=== PATIENT | male | born 1985 | race Caucasian/White ===

== ENCOUNTER 2023-10-24 06:57 | Emergency (ER) | payer MEDICAID, OTHER ==
[~2023-10-24] VITALS: Ht 175.3 cm; Wt 86.3 kg
[2023-10-24 07:10] VITALS: BP 144/89; PULSE 75; RESP 16; O2SAT 98
[2023-10-24 08:24] LABS: Basophils # (auto) 0.1 10 ^3/uL (0-0.2); Eosinophils # (auto) 0.1 10 ^3/uL (0-0.8); Eosinophils % (auto) 1.5 % (0.0-7.0); Hematocrit 40.9 % (41.0-53.0); Hemoglobin 13.8 g/dL (13.5-17.5); Lymphocytes # (auto) 1.5 10 ^3/uL (0.4-5.4); Lymphocytes % (auto) 24.5 % (10.0-50.0); Mean Corpuscular Hemoglobin 31.4 pg (28.0-32.0); Mean Corpuscular Hgb Conc. 33.7 g/dL (32.0-36.0); Mean Corpuscular Volume 93.1 fL (80.0-100.0); Monocytes # (auto) 0.5 10 ^3/uL (0-1.3); Monocytes % (auto) 8.5 % (0.0-12.0); Neutrophils # (auto) 3.9 10 ^3/uL (1.6-8.6); Neutrophils % (auto) 64.5 % (37.0-80.0); Red Blood Cells 4.39 10^6/uL (4.5-5.90); Red Cell Distribution Width 12.5 % (11.8-14.3)
[2023-10-24 08:42] LABS: Alanine Aminotransferase 13 U/L (7-40); Albumin 4.4 g/dL (3.2-4.8); Alkaline Phosphatase 97 U/L (46-116); Anion Gap 6 (5-15); Aspartate Aminotransferase 49 U/L (13-40); BUN/Creatinine Ratio 14.3 (10.0-20.0); Bilirubin, Direct 0.1 mg/dL (<0.3); Bilirubin, Total 0.4 mg/dL (0.2-1.0); Blood Alcohol 110.3 mg/dL (<10); Blood Urea Nitrogen 11 mg/dL (9-23); Calcium 9.1 mg/dL (8.5-10.1); Carbon Dioxide 26 mmol/L (20-30); Chloride 108 mmol/L (98-107); Glucose 94 mg/dL (74-106); Potassium 3.8 mmol/L (3.5-5.1); Sodium 140 mmol/L (136-145); Total Protein 6.8 g/dL (5.7-8.2)
[2023-10-24 09:31] LABS: Lipase 50 U/L (12-53); Magnesium 2.2 mg/dL (1.6-2.6)
[2023-10-24] MEDS ORDERED: BACDST PO (10:14)
== END 2023-10-24 10:42 | disposition home or self-care (01) ==
LOC: ER 06:57 → EDBD 06:57 → ER 10:42
DX: L02.232 Carbuncle of back [any part, except buttock and flank] (principal); L02.222 Furuncle of back [any part, except buttock and flank]; F10.10 Alcohol abuse, uncomplicated; F17.210 Nicotine dependence, cigarettes, uncomplicated; R07.89 Other chest pain; Z59.00 Homelessness unspecified; Y90.5 Blood alcohol level of 100-119 mg/100 ml
CPT/HCPCS: 36415; 71045; 80048; 80076; 80320; 83690; 83735; 85025

== ENCOUNTER 2023-12-29 01:54 | Inpatient (IN) | payer MEDICAID ==
[~2023-12-29] VITALS: Ht 180.3 cm; Wt 91.6 kg
[~2023-12-29 01:54] MED LIST: BACDST PO
[2023-12-29 03:17] LABS: Chloride 93 mmol/L (98-107); Potassium 3.8 mmol/L (3.5-5.1); Sodium 129 mmol/L (136-145)
[2023-12-29 03:18] LABS: Anion Gap 7 (5-15); Calcium 9.3 mg/dL (8.7-10.4); Carbon Dioxide 29 mmol/L (20-30)
[2023-12-29 03:23] LABS: BUN/Creatinine Ratio 11.5 (10.0-20.0); Blood Urea Nitrogen 13 mg/dL (9-23); Glucose 118 mg/dL (74-106)
[2023-12-29 03:50] LABS: Lactic Acid w/Reflex 2.1 mmol/L (0.4-2.0)
[2023-12-29 03:58] LABS: Basophils # (auto) 0 10 ^3/uL (0-0.2); Basophils % (auto) 0.3 % (0.0-2.0); Eosinophils # (auto) 0 10 ^3/uL (0-0.8); Eosinophils % (auto) 0.3 % (0.0-7.0); Hematocrit 41.4 % (41.0-53.0); Hemoglobin 14.4 g/dL (13.5-17.5); Lymphocytes # (auto) 0.9 10 ^3/uL (0.4-5.4); Lymphocytes % (auto) 10.9 % (10.0-50.0); Mean Corpuscular Hemoglobin 31.2 pg (28.0-32.0); Mean Corpuscular Hgb Conc. 34.9 g/dL (32.0-36.0); Mean Corpuscular Volume 89.6 fL (80.0-100.0); Monocytes # (auto) 1.1 10 ^3/uL (0-1.3); Monocytes % (auto) 13.1 % (0.0-12.0); Neutrophils # (auto) 6.2 10 ^3/uL (1.6-8.6); Neutrophils % (auto) 75.4 % (37.0-80.0); Nucleated Red Blood Cells % 0.1 %; Red Blood Cells 4.62 10^6/uL (4.5-5.90); Red Cell Distribution Width 12.6 % (11.8-14.3); White Blood Cell 8.2 10^3/uL (4.4-10.8)
[2023-12-29] MEDS: SODIUM CHLORIDE 0.9% 1,000 ML IV ONE (04:15)
[2023-12-29] MEDS: TETANUS-DIPTH-ACEL PERTUSSIS 0.5ML SYR Tdap IM ONE (04:15)
[2023-12-29] MEDS: KETOROLAC TROMETH 30 MG/ML 1ML VIAL IV ONE (04:47)
[2023-12-29] MEDS: PIPERACILLIN-TAZO 4.5GM 100 ML IV ONE (04:48)
[2023-12-29] MEDS ORDERED: ACETAMINOPHEN 325 MG TAB PO PRN (06:45)
[2023-12-29] MEDS ORDERED: DOCUSATE SOD 100 MG CAP PO PRN (06:45)
[2023-12-29] MEDS ORDERED: MORPHINE SULFATE INJ 2 MG/ml SYRG IV PRN ×2 (06:45)
[2023-12-29] MEDS ORDERED: ONDANSETRON HCL 4 MG/2 ML VIAL IV PRN (06:45)
[2023-12-29] MEDS ORDERED: NITROGLYCERIN 0.4 MG SL TAB SL PRN (06:45)
[2023-12-29 07:20] LABS: Basophils # (auto) 0 10 ^3/uL (0-0.2); Basophils % (auto) 0.2 % (0.0-2.0); Eosinophils # (auto) 0 10 ^3/uL (0-0.8); Eosinophils % (auto) 0.2 % (0.0-7.0); Hematocrit 36.9 % (41.0-53.0); Hemoglobin 12.8 g/dL (13.5-17.5); Lymphocytes # (auto) 0.6 10 ^3/uL (0.4-5.4); Lymphocytes % (auto) 6.7 % (10.0-50.0); Mean Corpuscular Hemoglobin 31.3 pg (28.0-32.0); Mean Corpuscular Hgb Conc. 34.7 g/dL (32.0-36.0); Monocytes # (auto) 1.1 10 ^3/uL (0-1.3); Neutrophils # (auto) 6.7 10 ^3/uL (1.6-8.6); Neutrophils % (auto) 79.9 % (37.0-80.0); Red Cell Distribution Width 12.8 % (11.8-14.3); White Blood Cell 8.3 10^3/uL (4.4-10.8)
[2023-12-29 07:33] LABS: Alanine Aminotransferase 20 U/L (7-40); Albumin 3.9 g/dL (3.2-4.8); Alkaline Phosphatase 77 U/L (46-116); Anion Gap 7 (5-15); Aspartate Aminotransferase 49 U/L (13-40); BUN/Creatinine Ratio 13.7 (10.0-20.0); Bilirubin, Total 0.9 mg/dL (0.2-1.0); Blood Urea Nitrogen 14 mg/dL (9-23); Calcium 8.7 mg/dL (8.7-10.4); Carbon Dioxide 26 mmol/L (20-30); Chloride 97 mmol/L (98-107); Glucose 135 mg/dL (74-106); Potassium 3.3 mmol/L (3.5-5.1); Sodium 130 mmol/L (136-145); Total Protein 6.5 g/dL (5.7-8.2)
[2023-12-29 08:18] VITALS: PULSE 56; RESP 17; O2SAT 97
[2023-12-29] MEDS: SODIUM CHLORIDE 0.9% 1,000 ML IV SCH (08:29)
[2023-12-29 09:03] VITALS: BP 101/51; PULSE 62; RESP 15; TEMP 98.4; O2SAT 99
[2023-12-29 13:00] VITALS: BP 92/43; PULSE 101; RESP 18; TEMP 97.5; O2SAT 93
[2023-12-29] MEDS: PIPERACILLIN-TAZOB 3.375GM 100 ML IV SCH (14:59)
[2023-12-29 17:00] VITALS: BP 99/54; PULSE 76; RESP 16; TEMP 98.6; O2SAT 99
[2023-12-29 20:00] VITALS: PULSE 98; RESP 18; O2SAT 98
[2023-12-29 21:00] VITALS: BP 98/64; PULSE 98; RESP 18; TEMP 98.6; O2SAT 98
[2023-12-30] VITALS (7 sets, daily range): BP systolic 92–118; BP diastolic 59–73; PULSE 71–95; RESP 17–19; TEMP 97.7–98.9; O2SAT 95–100
[2023-12-30] MEDS: HYDROcodone-ACET 5/325MG TAB PO PRN (05:53)
[2023-12-30 06:57] LABS: Basophils # (auto) 0 10 ^3/uL (0-0.2); Basophils % (auto) 0.5 % (0.0-2.0); Eosinophils # (auto) 0.1 10 ^3/uL (0-0.8); Hematocrit 34.3 % (41.0-53.0); Hemoglobin 11.7 g/dL (13.5-17.5); Lymphocytes # (auto) 1.2 10 ^3/uL (0.4-5.4); Lymphocytes % (auto) 19.9 % (10.0-50.0); Mean Corpuscular Hgb Conc. 34.2 g/dL (32.0-36.0); Mean Corpuscular Volume 90.7 fL (80.0-100.0); Monocytes # (auto) 0.9 10 ^3/uL (0-1.3); Monocytes % (auto) 14.9 % (0.0-12.0); Neutrophils # (auto) 3.8 10 ^3/uL (1.6-8.6); Neutrophils % (auto) 63.7 % (37.0-80.0); Nucleated Red Blood Cells % 0.1 %; Red Blood Cells 3.78 10^6/uL (4.5-5.90); Red Cell Distribution Width 12.9 % (11.8-14.3)
[2023-12-30 07:04] LABS: Alanine Aminotransferase 21 U/L (7-40); Alkaline Phosphatase 71 U/L (46-116); Anion Gap 5 (5-15); Aspartate Aminotransferase 34 U/L (13-40); BUN/Creatinine Ratio 12.6 (10.0-20.0); Blood Urea Nitrogen 11 mg/dL (9-23); Calcium 8.4 mg/dL (8.7-10.4); Carbon Dioxide 27 mmol/L (20-30); Chloride 101 mmol/L (98-107); Glucose 116 mg/dL (74-106); Potassium 3.9 mmol/L (3.5-5.1); Sodium 133 mmol/L (136-145)
[2023-12-30 07:05] LABS: Albumin 3.4 g/dL (3.2-4.8); Bilirubin, Total 0.6 mg/dL (0.2-1.0); Total Protein 5.7 g/dL (5.7-8.2)
[2023-12-30 08:43] LABS: Hepatitis B Surface Antigen Negative (Negative)
[2023-12-30 09:05] LABS: Hepatitis C Antibody Negative (Negative)
[2023-12-30] MEDS ORDERED: VANCOMYCIN PER PHARMACY 0 MG IV SCH (12:45)
[2023-12-30] MEDS: VANCOMYCIN 1GM/200ML 200 ML IV ONE (13:59)
[2023-12-30 20:58] LABS: Amphetamine Screen, Urine Neg (NEGATIVE); Barbiturate Scree,Urine Neg (NEGATIVE); Benzodiazephine Screen, Urine Neg (NEGATIVE); Cocaine Screen, Urine Neg (NEGATIVE); Opiate Scree,Urine Neg (NEGATIVE); Phencyclidine Screen, Urine Neg (NEGATIVE)
[2023-12-30 20:59] LABS: Cannabinoid Screen, Urine Neg (NEGATIVE)
[2023-12-30] MEDS: VANCOMYCIN 1GM/200ML 200 ML IV SCH (21:54)
[2023-12-31] VITALS (7 sets, daily range): BP systolic 97–112; BP diastolic 58–67; PULSE 70–81; RESP 16–20; TEMP 97.5–98.2; O2SAT 94–100
[2023-12-31] MEDS: PIPERACILLIN-TAZOB 3.375GM 100 ML IV SCH (00:02)
[2023-12-31 06:34] LABS: Alanine Aminotransferase 27 U/L (7-40); Albumin 3.7 g/dL (3.2-4.8); Alkaline Phosphatase 79 U/L (46-116); Anion Gap 7 (5-15); Aspartate Aminotransferase 38 U/L (13-40); BUN/Creatinine Ratio 12.2 (10.0-20.0); Blood Urea Nitrogen 10 mg/dL (9-23); Calcium 8.8 mg/dL (8.7-10.4); Carbon Dioxide 24 mmol/L (20-30); Chloride 104 mmol/L (98-107); Glucose 112 mg/dL (74-106); Potassium 4.1 mmol/L (3.5-5.1); Sodium 135 mmol/L (136-145)
[2023-12-31 06:35] LABS: Bilirubin, Total 0.4 mg/dL (0.2-1.0)
[2023-12-31 06:43] LABS: Basophils # (auto) 0 10 ^3/uL (0-0.2); Basophils % (auto) 0.6 % (0.0-2.0); Eosinophils # (auto) 0.2 10 ^3/uL (0-0.8); Eosinophils % (auto) 2.3 % (0.0-7.0); Hemoglobin 11.8 g/dL (13.5-17.5); Lymphocytes # (auto) 1.5 10 ^3/uL (0.4-5.4); Lymphocytes % (auto) 21.5 % (10.0-50.0); Mean Corpuscular Hemoglobin 30.7 pg (28.0-32.0); Mean Corpuscular Hgb Conc. 33.8 g/dL (32.0-36.0); Mean Corpuscular Volume 90.9 fL (80.0-100.0); Monocytes # (auto) 1.1 10 ^3/uL (0-1.3); Monocytes % (auto) 16.3 % (0.0-12.0); Neutrophils % (auto) 59.3 % (37.0-80.0); Nucleated Red Blood Cells % 0.1 %; Red Blood Cells 3.85 10^6/uL (4.5-5.90); Red Cell Distribution Width 13.1 % (11.8-14.3); White Blood Cell 6.8 10^3/uL (4.4-10.8)
[2023-12-31] MEDS: VANCOMYCIN 1GM/200ML 200 ML IV SCH (20:22)
[2024-01-01 01:00] VITALS: BP 101/61; PULSE 61; RESP 22; TEMP 98.9; O2SAT 98
[2024-01-01 05:00] VITALS: BP 110/67; PULSE 65; RESP 22; TEMP 97.9; O2SAT 99
[2024-01-01 07:30] VITALS: PULSE 70; RESP 18; O2SAT 98
[2024-01-01 09:03] VITALS: BP 101/59; PULSE 68; RESP 17; TEMP 97.7; O2SAT 97
[2024-01-01] MEDS ORDERED: CLIN300C2 PO (10:34)
[2024-01-01 13:45] VITALS: BP 112/66; PULSE 70; RESP 18; TEMP 36.5; O2SAT 95
[2024-01-02] MEDS ORDERED: IBUP-1456 PO (14:58)
== END 2024-01-01 15:00 | disposition home or self-care (01) | DRG 351 ==
LOC: ER 01:54 → OVERFLOW 06:50 → EAST 08:37
PROVIDERS: ADMIT Internal Medicine; ATTEND Internal Medicine Geriatric Medicine
DX: S81.802A Unspecified open wound, left lower leg, initial encounter (principal); E87.1 Hypo-osmolality and hyponatremia; L03.116 Cellulitis of left lower limb; S81.812A Laceration without foreign body, left lower leg, initial encounter; F15.90 Other stimulant use, unspecified, uncomplicated; E87.6 Hypokalemia; F17.210 Nicotine dependence, cigarettes, uncomplicated; X58.XXXA Exposure to other specified factors, initial encounter; Z59.00 Homelessness unspecified; Y93.89 Activity, other specified; Y92.89 Other specified places as the place of occurrence of the external cause; Y99.8 Other external cause status
CPT/HCPCS: 36415; 73590; 73700; 80048; 80053; 80202; 80307; 83605; 85025; 86803; 87040; 87077; 87186; 87205; 87340; 90715; 93005; 96365; 96372; 96375; G0378; J1885; J2543

== ENCOUNTER 2024-01-02 12:17 | Emergency (ER) | payer MEDICAID ==
[~2024-01-02] VITALS: Ht 180.3 cm; Wt 94.4 kg
[~2024-01-02 12:17] MED LIST changes: -BACDST PO; +CLIN300C2 PO
[2024-01-02 13:10] VITALS: BP 130/78; PULSE 100; RESP 16; TEMP 98; O2SAT 98
[2024-01-02 14:09] LABS: Urine Bacteria None Seen /hpf (None Seen); Urine WBC None Seen /hpf (0 - 3)
[2024-01-02 14:28] LABS: Urine Blood Negative /uL (Negative); Urine Clarity Clear (Clear); Urine Color Light-Yellow (Yellow); Urine Mucus FEW (None Seen); Urine Protein, UAD Negative (Negative); Urine Urobilinogen Normal (Negative); Urine pH 5.5 (5.0-9.0)
[2024-01-02 14:38] LABS: Amphetamine Screen, Urine Pos (NEGATIVE); Barbiturate Scree,Urine Neg (NEGATIVE); Benzodiazephine Screen, Urine Neg (NEGATIVE); Cocaine Screen, Urine Neg (NEGATIVE)
[2024-01-02 14:39] LABS: Cannabinoid Screen, Urine Neg (NEGATIVE); Opiate Scree,Urine Neg (NEGATIVE); Phencyclidine Screen, Urine Neg (NEGATIVE)
[2024-01-02] MEDS ORDERED: IBUP-1456 PO (14:58)
== END 2024-01-02 15:01 | disposition home or self-care (01) ==
LOC: ER 12:17
DX: S39.012A Strain of muscle, fascia and tendon of lower back, initial encounter (principal); F17.210 Nicotine dependence, cigarettes, uncomplicated; F15.10 Other stimulant abuse, uncomplicated; Z59.00 Homelessness unspecified; Z79.899 Other long term (current) drug therapy; X58.XXXA Exposure to other specified factors, initial encounter; Y93.89 Activity, other specified; Y92.89 Other specified places as the place of occurrence of the external cause; Y99.8 Other external cause status
CPT/HCPCS: 80307; 81001

== ENCOUNTER 2024-01-04 05:31 | Emergency (ER) | payer MEDICAID ==
[~2024-01-04] VITALS: Ht 180.3 cm; Wt 93.2 kg
[~2024-01-04 05:31] MED LIST changes: +IBUP-1456 PO
[2024-01-04] MEDS: DexAMETHasone SOD PHOS 10MG/1ML VIAL INJ IM ONE (07:13)
[2024-01-04 07:32] VITALS: BP 125/82; PULSE 77; RESP 18; TEMP 98; O2SAT 97
== END 2024-01-04 08:38 | disposition left against medical advice (07) ==
LOC: ER 05:31
DX: S39.012A Strain of muscle, fascia and tendon of lower back, initial encounter (principal); F17.210 Nicotine dependence, cigarettes, uncomplicated; F15.10 Other stimulant abuse, uncomplicated; Z59.00 Homelessness unspecified; X58.XXXA Exposure to other specified factors, initial encounter; Y93.89 Activity, other specified; Y92.89 Other specified places as the place of occurrence of the external cause; Y99.8 Other external cause status
CPT/HCPCS: 96372; 99283; J1100